=== PATIENT | male | born 1980 | race Caucasian/White ===

== ENCOUNTER 2017-05-13 14:35 | Emergency (ER) | payer SELFPAY ==
[2017-05-13 14:46] VITALS: BP 158/99
--- NOTE | 2017-05-13 20:08 | UC ---
Miranda Jones Thomas, scribed for Izzy Coppola DO on 05/13/17 at 1454 . Skin Complaint HPI - HPI Summary HPI Summary: The pt is a 37 y/o M presenting [place] [facility] [place]/o throat swelling that began 3 days ago. This swelling is not painful. He denies any dysphagia, wheezing, or any interference with his breathing. Pt additionally c/o unintentional recent weight loss (16 pounds in the last 30 days), chronic SOB (over last 2 months), sore throat (onset yesterday, and just barely), cough, intermittent nausea ( over the last month), and urticaria (when he exercises and none at [facility] He describes his SOB as I feel like I am out of breath like I am running but I havent been running, which then vanishes after a couple hours. He denies SOB at [facility]. The last time that he felt SOB was 1 week ago. Pt denies fevers, night sweats, dysphagia, dyspnea on exertion, vomiting, abd pain, diarrhea, CP, myalgia, rash, GARNER, arthralgia, hematuria, and dysuria. He denies recent changes in his diet. He describes his diet as unhealthy with much processed food. PMHx: Obesity. PSHx: none. SHx: no smoking, rare alcohol use, no illicit drugs. FHx: HTN, DM. He does not have a PCP. - History of Current Complaint Chief Complaint: [facility] Time Seen by Provider: 05/13/17 14:45 Stated Complaint: LUMP ON THROAT Hx Obtained From: Patient Onset/Duration: Lasting Days - 3, Still Present Timing: Constant Onset Severity: Moderate Current Severity: Moderate Pain Intensity: 0 Pain Scale Used: 0-10 Numeric Location: Discrete, Other - rt of trachea Character: Swelling Aggravating: Nothing Alleviating: Nothing Associated Signs & Symptoms: Positive: Nausea - intermittent and over the last month, Difficulty Breathing - chronic, none at [facility]. Negative: Vomiting, Fever, Chills, Cough, Wheezing, Chest Pain, Hoarseness, Throat Tightening, Rash, Abdominal Pain, Lightheadedness, Tenderness Related History: Other: - Recent weight loss (16 pounds in last 30 days, unintentional) - Allergy/Home Medications Allergies/Adverse Reactions: Allergies Allergy/AdvReac Type Severity Reaction Status Date / Time Penicillins [PCN] Allergy Rash Verified 07/29/14 07:13 fabric softener Allergy Unknown Uncoded 07/29/14 07:13 Reaction Details Review of Systems Constitutional: Other - POS: recent unintentional weight loss Skin: Other - POS: urticaria (none at [facility] and only when he exercises) Eyes: Negative ENT: Sore Throat - onset yesterday, minor Respiratory: Shortness Of Breath - chronic, although no dypsnea on exertion and none at [facility] Cardiovascular: Negative Gastrointestinal: Nausea - intermittent, over the last month Genitourinary: Negative Motor: Negative Neurovascular: Negative Musculoskeletal: Negative Neurological: Negative Psychological: Negative All Other Systems Reviewed And Are Negative: Yes PMH/Surg Hx/FS Hx/Imm Hx Previously Healthy: No - Obesity Respiratory History: Other Other Respiratory History: NEG: COPD - Surgical History Surgical History: None - Family History Known Family History: Positive: Hypertension, Diabetes - Social History Alcohol Use: Rare Substance Use Type: None Smoking Status (MU): Never Smoked Tobacco Physical Exam Triage Information Reviewed: Yes Appearance: Well-Appearing, No Pain Distress, Obese Vital Signs: Initial Vital Signs Temp 98.2 F 05/13/17 14:42 Pulse 69 05/13/17 14:42 Resp 18 05/13/17 14:42 BP 158/99 05/13/17 14:42 Pulse Ox 97 05/13/17 14:42 Vital Signs Reviewed: Yes Eyes: Positive: Conjunctiva Clear. Negative: Discharge ENT: Positive: Hearing grossly normal, Other: - Pt appears to have a smooth rubbery thyroid nodule on the left as well as lymphadenopathy in the cervical chain. No nodes in the superclavicular or axial area bilaterally.. Negative: Muffled/hoarse voice Neck: Positive: Supple Respiratory: Positive: Lungs clear, Normal breath sounds, No respiratory distress, No accessory muscle use Cardiovascular: Positive: RRR, No Murmur Abdomen Description: Positive: Nontender, Soft. Negative: Distended, Guarding Bowel Sounds: Positive: Present Musculoskeletal Exam: Normal Neurological: Positive: Alert, Muscle Tone Normal Psychological Exam: Normal Psychological: Positive: Age Appropriate Behavior Skin Exam: Normal Skin: Positive: Other - Warm, dry, normal color Course/Dx - Course Course Of Treatment: ASSESSMENT AND PLAN: The pt is a 37 y/o M presenting [place] [facility] [place]/o throat swelling that began 3 days ago. This swelling is not painful. He denies any dysphagia, wheezing, or any interference with his breathing. Pt additionally c/o unintentional recent weight loss (16 pounds in the last 30 days ), chronic SOB (over last 2 months), sore throat (onset yesterday, and just barely), cough, intermittent nausea (over the last month), and urticaria (when he exercises and none at [facility] He describes his SOB as I feel like I am out of breath like I am running but I havent been running, which then vanishes after a couple hours. He denies SOB at [facility]. The last time that he felt SOB was 1 week ago. Pt denies fevers, night sweats, dysphagia, dyspnea on exertion, vomiting, abd pain, diarrhea, CP, myalgia, rash, GARNER, arthralgia, hematuria, and dysuria. He denies recent changes in his diet. He describes his diet as unhealthy with much processed food. PMHx: Obesity. PSHx: none. SHx: no smoking, rare alcohol use, no illicit drugs. FHx: HTN, DM. He does not have a PCP. Blood pressure noted. Bloodwork was obtained, and the results will be communicated to him at a later date. This includes a CBC, CRP, ESR, and TSH. Patient is diagnosed with thyroid nodule, lymphadenopathy, and elevated BP without a diagnosis of HTN. Patient will be discharged home with follow up by PCP. He was given the number of the [facility] physician referral service and was told to tell the surgical instrument repair specialist that he needs an appointment in 2-5 days. He was strongly urged to make an appointment with a PCP. He was also encouraged to make healthy changes to his diet. He also was given a script for a BP cuff, which he was instructed to use a couple times before his appointment with his PCP. He was given patient education materials on lymphadenopathy and thyroid nodules. Patient is agreeable to this plan. - Differential Diagnoses - Skin Complaint Differential Diagnoses: Other - thyroid nodule, hyperthyroidism, neoplastic process, lad - Diagnoses Provider Diagnoses: Thyroid nodule, lymphadenopathy, elevated blood pressure without a diagnosis of HTN. Discharge - Discharge Plan Condition: Stable Disposition: HOME Patient Education Materials: Lymphadenopathy (ED), Thyroid Nodules (ED) Referrals: [facility]YSICIAN REFERRAL [Outside] - 3 Days (Please tell the surgical instrument repair specialist that we would like to have you seen in 2-5 days.) Additional Instructions: YOUR BLOOD PRESSURE WAS ELEVATED AT THIS VISIT. PLEASE FOLLOW UP WTH YOUR PCP FOR FURTHER EVALUATION. WE ARE GIVING YOU A SCRIPT FOR A BLOOD PRESSURE CUFF. PLEASE RE-CHECK YOU BP AT LEAST 2 TIMES BETWEEN NOW AND THEN. BE SURE TO RELAX FOR 5 MINUTES PRIOR TO CHECKING. RECORD THE RESULTS AND BRING THEM WITH YOU TO YOUR PCP'S OFFICE ALONG WITH YOUR HOME CUFF FOR CALIBRATION WITH YOUR PCP'S OFFICE CUFF. IF YOU DEVELOP ANY NEW SYMPTOMS SUCH DIZZINESS, SHORTNESS OF BREATH, HEAD ACHE, VISUAL CHANGES, CHEST PAIN, NAUSEA OR VOMITING, BLOOD IN YOUR URINE, LIGHTHEADEDNESS, OR ANY OTHER CONCERNING NEW SYMPTOM, GO TO THE ED IMMEDIATELY. The documentation as recorded by the Miranda solano Thomas accurately reflects the service I personally performed and the decisions made by me, Izzy Coppola DO.
[2017-05-14 14:27] LABS: Hematocrit 50 % (42-52); Hemoglobin 16.6 g/dl (14.0-18.0); Mean Corpuscular HGB Conc 33 g/dl (31-36); Mean Corpuscular Hemoglobin 26 pg (27-31); Mean Corpuscular Volume 79 fL (80-94); Mean Platelet Volume 9 um3 (7.4-10.4); Red Blood Count 6.36 10^6/ul (4.0-5.4); Red Cell Distribution Width 14 % (10.5-15); White Blood Count 5.8 10^3/ul (3.5-10.8)
[2017-05-14 14:30] LABS: Add Diff/Slide Review? Manual Diff Added; Comments Flag Yes
[2017-05-14 14:44] LABS: TSH (Thyroid Stimulating Horm) 3.27 mcIU/mL (0.34-5.60)
[2017-05-14 14:54] LABS: Eosinophils % 3 % (0-6); Immature Granulocytes 1 % (0-9); Neutrophil % 59 % (38-83); Reactive Lymph % 1 % (0-6)
[2017-05-14 14:55] LABS: RBC Morphology Normal (Normal)
[2017-05-14 15:14] LABS: Erythrocyte Sed Rate 9 mm/Hr (0-14)
--- NOTE | 2017-05-14 18:14 | UC ---
Progress - Progress Note Progress Note: Pt seen for lymphadenopathy and thyroid nodules; CBCw/diff and TSH reviewed. No urgent changes; pt directed to f/u with PCP at visit. Pathology comment still pending.
== END 2017-05-13 15:50 | disposition home or self-care (01) ==
LOC: UCEAST 14:35
DX: E04.1 Nontoxic single thyroid nodule (principal); E66.9 Obesity, unspecified; Z88.0 Allergy status to penicillin; R59.1 Generalized enlarged lymph nodes; R03.0 Elevated blood-pressure reading, without diagnosis of hypertension
CPT/HCPCS: 36415; 84443; 85025; 85060; 85652; 86141; 99212; G0463

== ENCOUNTER 2019-09-30 19:54 | Emergency (ER) | payer SELFPAY ==
[2019-09-30 20:02] VITALS: BP 158/99
--- NOTE | 2019-09-30 20:05 | UC ---
Skin Complaint HPI - HPI Summary HPI Summary: Patient presents to urgent care for highs. Patient states her on 6:00 he first noticed it. Patient states he was wearing clothes that his mother washed out machine. Patient states he is concerned that there was on the machine and he's had this similar kind of reaction before. Patient states it's very itchy. Patient denies trouble breathing. No shortness of breath. No wheeze. No nausea or vomiting or lightheaded. Patient did not take anything for his itching as he was at work. Patient states he's had similar reactions to Offer in the past. Patient without any other complaints per patient's medications as entered in the EMR by triage nurse reviewed this visit - History of Current Complaint Chief Complaint: UCSkin Time Seen by Provider: 09/30/19 20:03 Stated Complaint: RASH Hx Obtained From: Patient Pain Intensity: 0 - Allergy/Home Medications Allergies/Adverse Reactions: Allergies Allergy/AdvReac Type Severity Reaction Status Date / Time Penicillins Allergy Rash Verified 09/30/19 20:06 fabric softener Allergy Unknown Uncoded 09/30/19 20:02 Reaction Details PMH/Surg Hx/FS Hx/Imm Hx Previously Healthy: Yes - Surgical History Surgical History: None - Family History Known Family History: Positive: Hypertension, Diabetes, Non-Contributory - Social History Occupation: Employed Full-time Lives: With Family Alcohol Use: Rare Substance Use Type: None Smoking Status (MU): Never Smoked Tobacco Review of Systems All Other Systems Reviewed And Are Negative: Yes Constitutional: Positive: Negative Skin: Positive: Rash Eyes: Positive: Negative ENT: Positive: Negative Respiratory: Positive: Negative Is Patient Immunocompromised?: No Physical Exam - Summary Physical Exam Summary: Vital Signs Reviewed: Yes A+Ox3, no distress Eyes: Conjunctiva Clear, TREY. EOM intact and full ENT: Hearing grossly normal TM x 2 clear, mmoist, uvula midline, no exudate, no erythema, no intra oral edema, intra-oral hives Neck: Positive: Supple Respiratory: Positive: No respiratory distress, No accessory muscle use + CTA throughout no w/r Cardiovascular: RRR nl s1, s2 no m/r CBT <2 sec abd soft + BS nt/nd no guarding, no distension Musculoskeletal Exam: JOHNSON x 4 without difficulty Strength Intact, ROM Intact Neurological: Positive: Alert, + sensation throughout Psychological: Positive: Normal Response To technical aid Skin: Positive: + scattered hives chest, abd, back urticaria Triage Information Reviewed: Yes Vital Signs: Initial Vital Signs Temp 98.5 F 09/30/19 19:57 Pulse 102 09/30/19 19:57 Resp 18 09/30/19 19:57 BP 158/99 09/30/19 19:57 Pulse Ox 100 09/30/19 19:57 Course/Dx - Course Course Of Treatment: Patient presents to urgent care for full body hives - pt states likely related to fabric softner from mom no intra-oral edema VSS Pt with full urticaria body urticaria, no other systemic symptoms Will start pred, pepcid, bendaryl - precautions discussed avoid heat, NSAIDS return precautions discussed pt comfortable and in agreement with plan elevated BP - recommend f/u with pcp - Diagnoses Provider Diagnosis: Urticaria Discharge ED - Sign-Out/Discharge Documenting (check all that apply): Patient Departure All imaging exams completed and their final reports reviewed: No Studies - Discharge Plan Condition: Stable Disposition: HOME Prescriptions: Famotidine TAB* [Pepcid 20 MG TAB*] 20 mg PO DAILY #12 tab predniSONE 20 mg TAB [Deltasone 20 MG TAB*] 20 mg PO DAILY #17 tab Patient Education Materials: Urticaria (ED) Forms: *Work Release Referrals: [facility] PHYSICIAN REFERRAL [Outside] No Primary Care Phys,NOPCP [Primary Care Provider] - Additional Instructions: - Take prednisone exactly as prescribed until gone - starting tomorrow - Okay to take Benadryl (1-2 tablets) every 6 hours as needed. This medication may cause drowsiness - do NOT drive, operate machinery or drink alcohol while taking Benadryl -Take pepcid as prescribed - 2 times daily until gone -Avoid getting over heated (hot showers, hot tubs, exercise) for at least 48 hours - Try to avoid aspirin, NSAIDs (Motrin, Aleve, Naprosyn) for 2-3 days - Okay to apply cool compresses to the area of injury - rewash any clothing that may have been contaminated by the fabric softener. -Contact your doctor or return here with questions or concerns. If you develop facial swelling, tongue swelling, shortness of breath or any other concerns - call 911 immediately for evaluation and treatment - Billing Disposition and Condition Condition: STABLE Disposition: Home
[2019-09-30] MEDS ORDERED: Famotidine TAB* 20 MG PO ONE (20:13)
== END 2019-09-30 20:24 | disposition home or self-care (01) ==
LOC: UCEAST 19:54
DX: R03.0 Elevated blood-pressure reading, without diagnosis of hypertension (principal); L50.9 Urticaria, unspecified; Z88.0 Allergy status to penicillin; Z91.048 Other nonmedicinal substance allergy status
CPT/HCPCS: 99212; A9270-GY; G0463; J7512

== ENCOUNTER 2019-10-07 17:28 | Emergency (ER) | payer OTHER ==
[2019-10-07 17:59] VITALS: BP 154/101
--- NOTE | 2019-10-07 18:11 | UC ---
Allergic Reaction HPI - History of Current Complaint Chief Complaint: UCGeneralIllness Stated Complaint: BLURRY VISION, FLOATING SENSATION Time Seen by Provider: 10/07/19 18:08 Pain Intensity: 0 - Allergies/Home Medications Allergies/Adverse Reactions: Allergies Allergy/AdvReac Type Severity Reaction Status Date / Time Penicillins Allergy Rash Verified 10/07/19 17:54 fabric softener Allergy Unknown Uncoded 10/07/19 17:54 Reaction Details PMH/Surg Hx/FS Hx/Imm Hx - Surgical History Surgical History: None - Family History Known Family History: Positive: Hypertension, Diabetes, Non-Contributory - Social History Alcohol Use: Rare Substance Use Type: None Smoking Status (MU): Never Smoked Tobacco Physical Exam - Summary Physical Exam Summary: Vital Signs Reviewed: Yes General: well developed, well nourished obese sitting in the examining table w/ o any apparent respiratory distress. Eyes: Positive: Conjunctiva Clear - PERRLA, EOMI, fundi grossly normal ENT: Positive: Normal ENT inspection, Hearing grossly normal, Pharynx normal, TMs normal - B/L external ear canal clear, B/L TM's WNL, Other: - no maxillary or frontal sinus tenderness on percussion. Negative [place]-hallpike maneuver. Negative: Tonsillar swelling, Tonsillar exudate Dental Exam: Normal Neck: Positive: Supple, Nontender, No Lymphadenopathy Respiratory: Positive: Chest non-tender, Lungs clear, Normal breath sounds Cardiovascular: Positive: RRR, No Murmur, Pulses Normal, Brisk Capillary Refill Abdomen Description: Positive: Nontender, No Organomegaly, Soft. Negative: CVA Tenderness (R), CVA Tenderness (L) Bowel Sounds: Positive: Present Musculoskeletal Exam: Normal Musculoskeletal: Positive: Strength Intact, ROM Intact, No Edema Neurological Exam: Normal Neurological: Positive: Alert, Muscle Tone Normal, Other: - -Neuro: A&O x4, GCS 15, CN II-XII intact, no focal neuro deficits, normal [id number] or heel-to- ocasio testing. Romberg neg, no pronator drift, normal rapid alternating movements. Gait is normal, Psychological Exam: Normal Skin Exam: Normal Vital Signs: Initial Vital Signs Temp 99.3 F 10/07/19 17:55 Pulse 94 10/07/19 17:55 Resp 16 10/07/19 17:55 BP 154/101 10/07/19 17:55 Pulse Ox 97 10/07/19 17:55 Discharge ED - Discharge Plan Referrals: No Primary Care Phys,NOPCP [Primary Care Provider] -
--- NOTE | 2019-10-07 18:35 | UC ---
General HPI - HPI Summary HPI Summary: 39 y/o male presents to the urgent care c/o Dry mouth, body w/ a floating feeling, mild confusion at times, pressure in ears, jittery, blurred vision and frequency on urination for the past 6 days. Pt reports, he was seen here at the clinic on 09/30/2019 w/ a rash, possible allergic reaction and Rx Predisone PO. The next day, he noticed his mouth was very dry, and then w/ frequency on urination. Rash started to resolved. But yesterday symptoms worsen at work w/ blurred vision, mild confusion. Pt w/ FMHX of DM type II, but no Hx of DM. However, he has not seen his PCP for the past 2-3 years. Pt is not sure what had may cause the rash at the beginning of symptoms. But he thinks his symptoms are related to the Prednisone PO. Pt denies fever, pain, GARNER, diplopia, photophobia, SOB, difficulty breathing, chest pain, abdominal pain, N/V/D, Hx of STD's or burning on urination or flank pain. - History of Current Complaint Chief Complaint: UCGeneralIllness Stated Complaint: BLURRY VISION, FLOATING SENSATION Time Seen by Provider: 10/07/19 18:08 Hx Obtained From: Patient Onset/Duration: Gradual Onset, Lasting Days - 5 days ago, Still Present, Worse Since - todayt w/ frequency on urination, blurred vision, dry mouth, confusion Timing: Constant Onset Severity: Mild Current Severity: Moderate Pain Intensity: 0 Associated Signs & Symptoms: Positive: Dizziness. Negative: Fever, Headache, Melena, Vomiting, Wheezing, Weakness - Allergy/Home Medications Allergies/Adverse Reactions: Allergies Allergy/AdvReac Type Severity Reaction Status Date / Time Penicillins Allergy Rash Verified 10/07/19 19:19 fabric softener Allergy Unknown Uncoded 10/07/19 19:19 Reaction Details PMH/Surg Hx/FS Hx/Imm Hx Previously Healthy: Yes - Pt denies PMHX - Surgical History Surgical History: None - Family History Known Family History: Positive: Cardiac Disease, Hypertension, Diabetes, Non- Contributory - Social History Occupation: Employed Full-time Lives: With Family Alcohol Use: Rare Substance Use Type: None Smoking Status (MU): Never Smoked Tobacco Review of Systems All Other Systems Reviewed And Are Negative: Yes Constitutional: Positive: Other - body w/ a flooting feeling and midl confusion at times Skin: Positive: Rash - mild rash in all body which is resolving Eyes: Positive: Blurred Vision. Negative: Diplopia, Drainage, Photophobia ENT: Positive: Negative Respiratory: Positive: Negative Cardiovascular: Positive: Negative Gastrointestinal: Positive: Negative Genitourinary: Positive: Frequency. Negative: Dysuria, Urgency, Vaginal/Penile Burning, Vaginal/Penile Itching Motor: Positive: Negative Neurovascular: Positive: Negative Musculoskeletal: Positive: Negative Neurological: Positive: Other - midl confusion. Negative: Headache, Weakness, Paresthesia, Numbness Psychological: Positive: Negative Is Patient Immunocompromised?: No Physical Exam - Summary Physical Exam Summary: Vital Signs Reviewed: Yes General: well developed, well nourished obese male sitting in the examining table w/o any apparent respiratory distress. Eyes: Positive: Conjunctiva Clear - PERRLA, EOMI, fundi grossly normal ENT: Positive: Normal ENT inspection, Hearing grossly normal, Pharynx normal, TMs normal - B/L external ear canal clear, B/L TM's WNL, Other: - no maxillary or frontal sinus tenderness on percussion. Negative [place]-hallpike maneuver. Negative: Tonsillar swelling, Tonsillar exudate Dental Exam: Normal Neck: Positive: Supple, Nontender, No Lymphadenopathy Respiratory: Positive: Chest non-tender, Lungs clear, Normal breath sounds Cardiovascular: Positive: RRR, No Murmur, Pulses Normal, Brisk Capillary Refill Abdomen Description: Positive: Nontender, No Organomegaly, Soft. Negative: CVA Tenderness (R), CVA Tenderness (L) Bowel Sounds: Positive: Present Musculoskeletal Exam: Normal Musculoskeletal: Positive: Strength Intact, ROM Intact, No Edema Neurological Exam: Normal Neurological: Positive: Alert, Muscle Tone Normal, Other: - -Neuro: A&O x4, GCS 15, CN II-XII intact, no focal neuro deficits, normal [id number] or heel-to- ocasio testing. Romberg neg, no pronator drift, normal rapid alternating movements. Gait is normal, Psychological Exam: Normal Skin Exam: Normal Triage Information Reviewed: Yes Vital Signs: Initial Vital Signs Temp 99.3 F 10/07/19 17:55 Pulse 94 10/07/19 17:55 Resp 16 10/07/19 17:55 BP 154/101 10/07/19 17:55 Pulse Ox 97 10/07/19 17:55 Course/Dx - Course Course Of Treatment: 39 y/o male presents to the urgent care c/o Dry mouth, body w/ a floating feeling, mild confusion at times, pressure in ears, jittery, blurred vision and frequency on urination for the past 6 days. Pt reports, he was seen here at the clinic on 09/30/2019 w/ a rash, possible allergic reaction and Rx Predisone PO. The next day, he noticed his mouth was very dry, and then w/ frequency on urination. Rash started to resolved. But yesterday symptoms worsen at work w/ blurred vision, mild confusion. Pt w/ FMHX of DM type II, but no Hx of DM. However, he has not seen his PCP for the past 2-3 years. Pt is not sure what had may cause the rash at the beginning of symptoms. But he thinks his symptoms are related to the Prednisone PO. Pt denies fever, pain, GARNER, diplopia, photophobia, SOB, difficulty breathing, chest pain, abdominal pain, N/V/D, Hx of STD's or burning on urination or flank pain. Pt is hemodynamically stable, A&OX3, Vitals: WNL except for BP 154/101 w/ no focal neurological derficit. FSG: >444mg/dl, UA: 2+glucose, 1+ketone. Pt states No Hx of DM. Pt w/ possible hyperglycemic hyperosmolar state. Pt's symptoms discussed w/ Dr Valle since It think Pt needs to go to a higher level of care for a full work-up. DR Valle agreed and recommends ambulance transfer. Pt's findings discussed w/ patient and strongly advised to go to [facility] by ambulance. Pt declined ambulance transfer and stated he will drive to the [place] ER immediately. Pt explained the risks of not going by ambulance and he still declines and sings AMA form and states he will go by private car. I spoke w/ DR Ballard at [facility] and discussed Pt's symptoms w/ him and he accepted patient who will go by private car.Pt's BP is elevated today advised to decrease salt in diet, monitor BP and f/u with PCP for further management. Pt left clinic hemodynamically stable, A&OX3 and ambulating - Differential Dx - Multi-Symptom Differential Diagnoses: Cardiac Ischemia, Metabolic Abnormality, Urinary Tract Infection, Other - hyperglycimic hyperosmolar state, - Diagnoses Provider Diagnosis: Hyperglycemia, unspecified, Elevated BP without diagnosis of hypertension Discharge ED - Sign-Out/Discharge Documenting (check all that apply): Patient Departure All imaging exams completed and their final reports reviewed: No - Discharge Plan Condition: Stable Disposition: AGAINST MEDICAL ADVICE Patient Education Materials: Hyperosmolar Hyperglycemic State (ED) Referrals: [facility] [Outside] Additional Instructions: I think you need a higher level or care for your presenting symptoms. I highly recommend you to go to the ER for further evaluation and treatment. The risks of not going can be , sepsis, heart attack, etc. I spoke to the ER attending Dr. Ballard. They are expecting you. - Billing Disposition and Condition Condition: STABLE Disposition: Against Medical Advice - Attestation Statements Provider Attestation: This patient was not seen by me. I was available for consult. Chart reviewed. JUN
== END 2019-10-07 18:50 | disposition left against medical advice (07) ==
LOC: UCEAST 17:28
DX: R73.9 Hyperglycemia, unspecified (principal); R03.0 Elevated blood-pressure reading, without diagnosis of hypertension; R35.0 Frequency of micturition; H53.8 Other visual disturbances; R41.0 Disorientation, unspecified
CPT/HCPCS: 81003; 99212; G0463

== ENCOUNTER 2019-10-07 19:09 | Observation (INO) | payer OTHER ==
[2019-10-07] MEDS ORDERED: NS 0.9% 1000 ML** 1,000 ML IV ONE ×2 (19:31→20:22)
--- NOTE | 2019-10-07 19:38 | ED ---
HPI Diabetic - HPI Summary HPI Summary: 39 year old male presents to the ED with a chief complaint of diabetes-like symptoms since starting a Prednisone treatment a week ago. Patient started taking prednasone due to an allergic reaction last week. Since then, he has been always thirsty, frequently urinating, feeling weak, has had nausea, feels tired, has a bad taste in his mouth, and feels "like he's floating". Patient denies weight loss. No past diagnoses of DM. FHx of DM. Patient rarely drinks alcohol. He does not do recreational drugs or smoke tobacco. - History Of Current Complaint Chief Complaint: EDDiabeticProb Hx Obtained From: Patient Onset/Duration: Sudden Onset, Lasting Days, Still Present Timing: Constant Character: Other - weak and fatigued Aggravating: Medication Change - started prednisone 1 wk ago Associated Signs & Symptoms: Decreased Level of Conciousness - fatigued, feels like hes floating, feels weak, "Fruity Breath", Nausea, Polydipsia, Polyuria - Allergies/Home Medications Allergies/Adverse Reactions: Allergies Allergy/AdvReac Type Severity Reaction Status Date / Time Penicillins Allergy Rash Verified 10/07/19 19:19 fabric softener Allergy Unknown Uncoded 10/07/19 19:19 Reaction Details PMH/Surg Hx/FS Hx/Imm Hx Endocrine/Hematology History: Denies: Hx Diabetes Cardiovascular History: Reports: Hx Hypertension - pt states he is told his bp is high but takes not meds Respiratory History: Denies: Hx Asthma Infectious Disease History: No Infectious Disease History: Denies: Hx Clostridium Difficile, Hx Hepatitis, Hx Human Immunodeficiency Virus (HIV), Hx of Known/Suspected MRSA, Hx Shingles, Hx Tuberculosis, Hx Known/ Suspected VRE, Hx Known/Suspected VRSA, History Other Infectious Disease, Traveled Outside the [place] in Last 30 Days - Family History Known Family History: Positive: Hypertension, Diabetes, Non-Contributory - Social History Alcohol Use: Rare Substance Use Type: Reports: None Smoking Status (MU): Never Smoked Tobacco Review of Systems Constitutional: Negative - no weight loss, Other - feels like he is floating Positive: Fatigue, Other - always thirsty Positive: Other - Bad taste in his mouth Positive: frequency Positive: Weakness All Other Systems Reviewed And Are Negative: Yes Physical Exam - Summary Physical Exam Summary: VITAL SIGNS: Reviewed. GENERAL: Patient is a well-developed and nourished male who is lying comfortable in the stretcher. Patient is not in any acute respiratory distress. HEAD AND FACE: No signs of trauma. No ecchymosis, hematomas or skull depressions. No sinus tenderness. EYES: PERRLA, EOMI x 2, No injected conjunctiva, no nystagmus. EARS: Hearing grossly intact. Ear canals and tympanic membranes are within normal limits. MOUTH: Oropharynx within normal limits. NECK: Supple, trachea is midline, no adenopathy, no JVD, no carotid bruit, no c- spine tenderness, neck with full ROM. CHEST: Symmetric, no tenderness at palpation. LUNGS: Clear to auscultation bilaterally. No wheezing or crackles. CVS: Regular rate and rhythm, S1 and S2 present, no murmurs or gallops appreciated. ABDOMEN: Soft, non-tender. No signs of distention. No rebound, no guarding, and no masses palpated. Bowel sounds are normal. EXTREMITIES: FROM in all major joints, no edema, no cyanosis or clubbing. NEURO: Alert and oriented x 3. No acute neurological deficits. Speech is normal and follows commands. SKIN: Dry and warm. Triage Information Reviewed: Yes Vital Signs On Initial Exam: Initial Vitals Temp Pulse Resp BP Pulse Ox 99.2 F 102 15 156/104 96 10/07/19 19:15 10/07/19 19:15 10/07/19 19:15 10/07/19 19:15 10/07/19 19:15 Vital Signs Reviewed: Yes Diagnostics - Vital Signs Vital Signs Temp Pulse Resp BP Pulse Ox 10/07/19 19:15 99.2 F 102 15 156/104 96 - Laboratory Result Diagrams: 10/07/19 19:45 10/07/19 19:45 Lab Statement: Any lab studies that have been ordered have been reviewed, and results considered in the medical decision making process. Diabetic Course/Dx - Course Assessment/Plan: 39 year old male presents to the ED with a chief complaint of diabetes-like symptoms since starting a Prednisone treatment a week ago. Patient started taking prednisone due to an allergic reaction last week. Since then, he has been always thirsty, frequently urinating, feeling weak, has had nausea, feels tired, has a bad taste in his mouth, and feels "like he's floating ". Patient denies weight loss. No past diagnoses of DM. FHx of DM. Patient rarely drinks alcohol. He does not do recreational drugs or smoke tobacco. Blood work without a significant abnormality except for sodium 125, chloride 91 , carbon dioxide is 20, calculated anion gap is 16, creatinine 1.23, glucose 637. In the ED course the patient was given 2 L of IV fluids. I placed the patient in insulin drip. I discuss my physical exam and findings with Dr. Martines from the hospital services and she agrees to admit patient. However, she recommends to stop the insulin drip and just to give insulin pushes at this time. She will reassess. There is no need for insulin drip. Patient is hemodynamically stable alert oriented 3. - Diagnoses Differential Dx: Diabetic Ketoacidosis, Hyperglycemia, Hyperosmolar State Provider Diagnoses: Hyperosmolar non-ketotic state in patient with type 2 diabetes mellitus - Physician Notifications Discussed Care Of Patient With: Meng Martines - Hospitalist Time Discussed With Above Provider: 20:37 Instructed by Provider To: Admit As Observation - I spoke to Dr. Martines, who accepts the patient for admission as observation. However, she recommends to not do an insulin drip at this time. She would do an insulin push instead. Admit/Transition Orders Completed By ED Provider: Yes Discharge ED - Sign-Out/Discharge Documenting (check all that apply): Patient Departure - admit - Discharge Plan Condition: Stable Disposition: ADMITTED TO [facility] Referrals: No Primary Care Phys,NOPCP [Primary Care Provider] - - Billing Disposition and Condition Condition: STABLE Disposition: Admitted to [facility] - Attestation Statements Document Initiated by Scribe: Yes Documenting Scribe: Rip Coreas Provider For Whom Analy is Documenting (Include Credential): Boris Ballard MD Scribe Attestation: I, Rip Coreas, scribed for Boris Ballard MD on 10/07/19 at 2130. Scribe Documentation Reviewed: Yes Provider Attestation: The documentation as recorded by the scribe, Rip Coreas accurately reflects the service I personally performed and the decisions made by me, Boris Ballard MD Status of Scribe Document: Viewed
[2019-10-07 19:58] LABS: ABS Lymphocytes 0.7 10^3/ul (1.0-4.8); ABS Monocytes 0.3 10^3/ul (0-0.8); ABS Neutrophils 8.8 10^3/ul (1.5-7.7); Eosinophil % 0.4 %; Hematocrit 51 % (42-52); Hemoglobin 17.3 g/dL (14.0-18.0); Lymphocyte % 7.5 %; Mean Corpuscular HGB Conc 34 g/dL (31-36); Mean Corpuscular Hemoglobin 28 pg (27-31); Mean Corpuscular Volume 81 fL (80-94); Mean Platelet Volume 9.6 fL (7.4-10.4); Platelet Count 251 10^3/uL (150-450); Red Cell Distribution Width 14 % (10-15); White Blood Count 9.8 10^3/uL (3.5-10.8)
[2019-10-07 20:13] LABS: Albumin 4.5 g/dL (3.2-5.2); Albumin/Globulin Ratio 1.4 (1-3); BUN/Creatinine Ratio 14.6 (8-20); Calcium 9.9 mg/dL (8.6-10.3); EGFR African American 79.7 (>60); EGFR Non-African American 65.9 (>60); Globulin 3.2 g/dL (2-4); Total Bilirubin 0.8 mg/dL (0.2-1.0); Total Protein 7.7 g/dL (6.4-8.9)
[2019-10-07] MEDS ORDERED: Insulin REGULAR(*) 1 UNITS UNIT IV PUSH ONE (20:28)
[2019-10-07 20:43] LABS: TSH (Thyroid Stimulating Horm) 2.63 mcIU/mL (0.34-5.60)
[2019-10-07] MEDS ORDERED: Insulin Infusion 100unit/100mL 100 UNITS/100 ML UNIT IV SCH (21:00)
[2019-10-07 21:02] LABS: Urine Appearance Clear; Urine Bilirubin Negative (Negative); Urine Blood Negative (Negative); Urine Color Yellow; Urine Glucose 3+(>=500 mg/dL) (Negative); Urine Ketones 1+ (Negative); Urine Nitrite Negative (Negative); Urine Protein Negative (Negative); Urine Specific Gravity 1.032 (1.010-1.030); Urine Urobilinogen Negative (Negative)
[2019-10-07 21:26] LABS: Potassium 4.7 mmol/L (3.5-5.0)
[2019-10-07] MEDS ORDERED: Dextrose 50% Syringe 50 ML* 25 GM/50 ML SYRINGE IV PUSH PRN ×2 (22:17→22:19)
[2019-10-07] MEDS ORDERED: Insulin LISPRO* 1 UNITS UNIT SUBCUT ONE (22:17)
[2019-10-07] MEDS ORDERED: diPHENhydraMINE PO* 25 MG PO PRN (22:20)
[2019-10-07] MEDS ORDERED: NS 0.9% 1000 ML** 1,000 ML IV SCH (22:30)
[2019-10-07] MEDS: Famotidine TAB* 20 MG PO SCH (23:58)
[2019-10-08 00:18] LABS: BUN/Creatinine Ratio 15.8 (8-20); Calcium 8.8 mg/dL (8.6-10.3); EGFR African American 107.4 (>60); EGFR Non-African American 88.7 (>60); Potassium 4.1 mmol/L (3.5-5.0)
--- NOTE | 2019-10-08 00:49 | HP ---
HISTORY AND PHYSICAL: DATE OF ADMISSION: 10/07/19 PRIMARY CARE PROVIDER: None. CHIEF COMPLAINT: Polyuria, polydipsia, recent prednisone treatment. HISTORY OF PRESENT ILLNESS: The patient is a 39-year-old male with no significant past medical history, who was recently started on prednisone due to an allergic reaction that occurred last week. The patient reports that last Monday, he developed a rash at the upper body, hives associated with itching, he was unsure what it was due to, was seen at the urgent clinic and was started on prednisone and Pepcid. Two days later, he had another episode like mild hives developing. At this point, the patient is unsure as to what is causing the allergic symptoms, he thinks that perhaps that could be the things he is exposed to at work; however, it could be a new detergent. The patient is unsure. Currently, he does not have any allergic symptoms, no rashes, no lesions, no itching throat, no sore throat, no trouble breathing. Since they started him on prednisone, he has been having some dry mouth and increased thirst. He has been drinking soda with sugar. Has increased his fluid intakes due to thirst for the past one week. He also been having increasing weakness, feeling dehydrated and having frequent urination. He has also been having nausea. In the emergency room, the patient was seen and evaluated, was given IV fluids and 10 units of regular insulin. Subsequently, the hospitalist service was called due to hyperglycemia. MEDICATIONS: The patient's home medications include: 1. Prednisone taper. 2. Famotidine 20 mg daily. PAST MEDICAL HISTORY: None. PAST SURGICAL HISTORY: None. FAMILY HISTORY: Mother: Does not have any medical problems, but she does not go to the doctor on a regular basis. He does not know much history about his father as he has never met the father. Maternal grandmother had a heart problem. SOCIAL HISTORY: The patient lives at home with his mother, no use of alcohol. No smoking. He works with machines for airplane parts. REVIEW OF SYSTEMS: The patient does not have any fevers, no chills, however, has been having increased fatigue and dehydration. No changes in his vision or hearing, no sore throat, has been having dry mouth, no chest pain, no palpitations, no shortness of breath, no cough, no sputum production, no palpitations, no orthopnea, he has been having some abdominal discomfort earlier this morning, however, that has resolved. He is having nausea, however , no vomiting. He thinks that he is having constipation at times, but his last bowel movement was earlier this morning. No headaches, no changes in his mood. No thoughts of hurting himself or anyone else, no focal weakness or numbness that he can see. PHYSICAL EXAMINATION GENERAL: This is a young male, well developed, well nourished, lying in bed in no distress. VITAL SIGNS: Blood pressure is 156/104, saturation of 97% on room air, respiratory rate of 15, pulse of 102, temperature of 99.2. HEENT: Pupils are equal, round, and reactive to light. Atraumatic, normocephalic. Oral mucosa is dry. There is poor skin turgor. NECK: Supple with no JVD. LUNGS: There is no tachypnea, no use of accessory muscles. Lungs are clear without any wheezing, rales, or rhonchi. HEART: There is no chest wall tenderness, regular rate rhythm. No murmurs. ABDOMEN: Normoactive bowel sounds. Abdomen is soft, nontender, nondistended. EXTREMITIES: No lower extremity edema. Radial pulses 2+ bilaterally, no cyanosis, clubbing or edema. No lower extremity edema. NEUROLOGICAL: The patient is awake, alert, oriented x3, following all commands. Speech is clear and coherent. Tongue is midline. No facial droop. SKIN: Poor skin turgor. No rashes or lesions identified. DIAGNOSTIC STUDIES/LAB DATA: WBC of 9.8, hemoglobin of 17.3, hematocrit of 51 , platelets of 251, absolute neutrophil count of 8.8. Blood gas, VBG; pH of 7.41, pCO2 of 34. Chemistry shows sodium of 125, potassium of 4.7, chloride 91 , bicarb of 20, anion gap of 14, BUN 18, creatinine 1.23. GFR of non- 65.1. Glucose 677. After getting some insulin, POC glucose is 356. Total bilirubin of 0.8, AST 21, ALT 42, alkaline phosphatase 93, total protein 7.7, albumin 4.5, TSH of 2.63. Urine positive for 1+ ketone, protein negative, specific gravity 1.032, glucose 3+. IMPRESSION AND PLAN: 1. Hyperglycemia, positive for ketones, this is secondary to steroid-induced hyperglycemia: The patient does not have any past medical history of diabetes, hemoglobin A1c has been ordered, we will follow this up. With the glucose of 356, I will opt to get him another insulin subcu 1 dose of 5 units and I will also order insulin sliding scale. I started the patient on diabetic diet, continue IV fluids. Though, he does have elevated anion gap, at this point we will monitor the patient, I do not think he is having DKA as he does not have acidosis. 2. Allergy symptoms: Currently, he does not have any allergic symptoms, continue Pepcid, hold his home prednisone dose which he is being tapered off of. I ordered Benadryl as needed for allergy symptoms. 3. DVT prophylaxis: Low risk of DVT, SCDs and ambulate as tolerated. 4. We will start him on a consistent carb diet. The patient does not have any primary care doctor, will require [facility] referral. [id number]/[facility] #: [id number] [place]
[2019-10-08 05:59] LABS: BUN/Creatinine Ratio 18.9 (8-20); Calcium 8.3 mg/dL (8.6-10.3); EGFR African American 143.2 (>60); EGFR Non-African American 118.4 (>60); Potassium 3.8 mmol/L (3.5-5.0)
[2019-10-08] MEDS: Insulin LISPRO* 1 UNITS UNIT SUBCUT SCH ×4 (09:40→23:07)
[2019-10-08] MEDS: Famotidine TAB* 20 MG PO SCH (09:41)
--- NOTE | 2019-10-08 17:54 | CONSULT ---
Consult Consult: [facility] Inpatient Consult Note Date of Consult: 10/08/19 Reason for Consult: ketosis-prone diabetes Reason for Admission: steroid-induced hyperglycemia ASSESSMENT: 39 yo M with acute, steroid-induced hyperglycemia in setting of chronic, subclinical type 2 diabetes presenting with severe hyperglycemia and ketosis. It is likely that he has had subclinical diabetes for at least 6 months with A1c >13%, but recent steroid use and consumption of sugar-sweetened beverages has caused a severe hyperglycemic reaction. Hyperglycemia and ketosis have corrected rapidly with IVF, suggesting that he is likely to make a rapid recovery and will not need to use insulin after discharge. PLAN: - start glipizide XL 5mg QAM and metformin ER 750mg QHS - continue correction insulin for now - follow-up with endocrine or PCP in 2-3 weeks - call [phone] with questions SUBJECTIVE: History of Present Illness: 39 yo M admitted for symptomatic hyperglycemia. He has been in his usual state of good health until he developed upper body rash after exposure to a new cleaning product. He was prescribed prednisone taper for this approximately 1 week ago and noted rapid resolution of the skin symptoms. He continued to take prednisone as directed, however, and has experienced worsening polyuria/polydipsia. No personal or family history of diabetes. See admission note for further details. Past Medical History: none Medications Prior to Admission: none Inpatient Medications: Dextrose (D50w Syringe 50 Ml*) 12.5 gm IV PUSH .FOR FS < 60 - SS PRN PRN Reason: FS < 60 Diphenhydramine HCl (Benadryl Po*) 25 mg PO Q8HR PRN PRN Reason: Allergy Symptoms Last Admin: 10/07/19 23:58 Dose: 25 mg Famotidine (Pepcid Tab*) 20 mg PO DAILY [facility] Last Admin: 10/08/19 09:41 Dose: 20 mg Insulin Human Lispro (Humalog*) 0 units SUBCUT ACHS [facility]; Protocol Last Admin: 10/08/19 17:45 Dose: 6 units Allergies/Intolerances: PCN Social History: No tobacco or alcohol. Works with machine tools. Family History: Non-contributory. Review of Systems: 12 system review is otherwise negative. OBJECTIVE: Temp Pulse Resp BP Pulse Ox 98 F 86 18 150/84 98 10/08/19 15:15 10/08/19 15:15 10/08/19 15:15 10/08/19 15:15 10/08/19 15:15 General: alert, pleasant, oriented, no distress ENT: neck supple, no thyromegaly, no bruit is heard Chest: CTAB, no wheezing or crackles CV: RRR, no murmur Abdomen: soft, non-tender Extremities: no edema, distal pulses intact Skin: warm, dry, no rash Neuro: grossly intact motor/sensory in extremities Psych: restricted affect, pleasant Labs: Glucose Results 10/08/19 07:30 222 10/08/19 11:24 285 10/08/19 16:22 261 WBC 9.8 10^3/uL (3.5-10.8) 10/07/19 19:45 RBC 6.30 10^6 /uL (4.18-5.48) H 10/07/19 19:45 Hgb 17.3 g/dL (14.0-18.0) 10/07/19 19:45 Hct 51 % (42-52) 10/07/19 19:45 MCV 81 fL (80-94) 10/07/19 19:45 MCH 28 pg (27-31) 10/07/19 19:45 MCHC 34 g/dL (31-36) 10/07/19 19:45 RDW 14 % (10-15) 10/07/19 19:45 Plt Count 251 10^3/uL (150-450) 10/07/19 19:45 MPV 9.6 fL (7.4-10.4) 10/07/19 19:45 Neut % (Auto) 89.0 % 10/07/19 19:45 Lymph % (Auto) 7.5 % 10/07/19 19:45 [place] % (Auto) 2.8 % 10/07/19 19:45 Eos % (Auto) 0.4 % 10/07/19 19:45 Baso % (Auto) 0.3 % 10/07/19 19:45 Absolute Neuts (auto) 8.8 10^3/ul (1.5-7.7) H 10/07/19 19:45 Absolute Lymphs (auto) 0.7 10^3/ul (1.0-4.8) L 10/07/19 19:45 Absolute Monos (auto) 0.3 10^3/ul (0-0.8) 10/07/19 19:45 Absolute Eos (auto) 0.0 10^3/ul (0-0.6) 10/07/19 19:45 Absolute Basos (auto) 0.0 10^3/ul (0-0.2) 10/07/19 19:45 Absolute Nucleated RBC 0.0 10^3/ul 10/07/19 19:45 Nucleated RBC % 0.0 10/07/19 19:45 VBG pH 7.41 (7.32-7.43) 10/07/19 19:45 VBG pCO2 34 mmHg (41-51) L 10/07/19 19:45 VBG pO2 59.0 mmHg (35-45) H 10/07/19 19:45 VBG HCO3 22.9 mmol/L (24-28) L 10/07/19 19:45 VBG O2 Saturation 94.0 % (70-80) H 10/07/19 19:45 VBG Base Excess -2.4 mmol/L (0.0-4.0) L 10/07/19 19:45 Sodium 133 mmol/L (135-145) L 10/08/19 05:18 Potassium 3.8 mmol/L (3.5-5.0) 10/08/19 05:18 Chloride 101 mmol/L (101-111) 10/08/19 05:18 Carbon Dioxide 23 mmol/L (22-32) 10/08/19 05:18 Anion Gap 9 mmol/L (2-11) 10/08/19 05:18 BUN 14 mg/dL (6-24) 10/08/19 05:18 Creatinine 0.74 mg/dL (0.67-1.17) 10/08/19 05:18 Est GFR ( Amer) 143.2 (>60) 10/08/19 05:18 Est GFR (Non-Af Amer) 118.4 (>60) 10/08/19 05:18 BUN/Creatinine Ratio 18.9 (8-20) 10/08/19 05:18 Glucose 231 mg/dL (70-100) H 10/08/19 05:18 POC Glucose (mg/dL) 261 mg/dL (70-100) H 01/21/20 16:24 Glucose Meter Confirm 637 mg/dL (70-100) H* 10/07/19 19:45 Hemoglobin A1c 13.9 % (4.0-5.6) H 10/07/19 19:45 Calcium 8.3 mg/dL (8.6-10.3) L 10/08/19 05:18 Total Bilirubin 0.80 mg/dL (0.2-1.0) 10/07/19 19:45 AST 21 U/L (13-39) 10/07/19 19:45 ALT 42 U/L (7-52) 10/07/19 19:45 Alkaline Phosphatase 93 U/L (34-104) 10/07/19 19:45 Total Protein 7.7 g/dL (6.4-8.9) 10/07/19 19:45 Albumin 4.5 g/dL (3.2-5.2) 10/07/19 19:45 Globulin 3.2 g/dL (2-4) 10/07/19 19:45 Albumin/Globulin Ratio 1.4 (1-3) 10/07/19 19:45 TSH 2.63 mcIU/mL (0.34-5.60) 10/07/19 19:45 Urine Color Yellow 10/07/19 20:42 Urine Appearance Clear 10/07/19 20:42 Urine pH 5.0 (5-9) 10/07/19 20:42 Ur Specific [place] 1.032 (1.010-1.030) H 10/07/19 20:42 Urine Protein Negative (Negative) 10/07/19 20:42 Urine Ketones 1+ (Negative) A 10/07/19 20:42 Urine Blood Negative (Negative) 10/07/19 20:42 Urine Nitrate Negative (Negative) 10/07/19 20:42 Urine Bilirubin Negative (Negative) 10/07/19 20:42 Urine Urobilinogen Negative (Negative) 10/07/19 20:42 Ur Leukocyte Esterase Negative (Negative) 10/07/19 20:42 Urine Glucose 3+(>=500 mg/dl) (Negative) A 10/07/19 20:42
--- NOTE | 2019-10-08 20:13 | PN ---
Subjective Date of Service: 10/08/19 Interval History: patient c/o of being fatigued , reports he was not sleeping well at night. Denies chest pain or shortness of breath. Denies abd pain n/v/d. Denies fever or chills Family History: Unchanged from Admission Social History: Unchanged from Admission Past Medical History: Unchanged from Admission Objective Active Medications: Dextrose (D50w Syringe 50 Ml*) 12.5 gm IV PUSH .FOR FS < 60 - SS PRN PRN Reason: FS < 60 Diphenhydramine HCl (Benadryl Po*) 25 mg PO Q8HR PRN PRN Reason: Allergy Symptoms Last Admin: 10/07/19 23:58 Dose: 25 mg Famotidine (Pepcid Tab*) 20 mg PO DAILY [facility]OD[facility] Last Admin: 10/08/19 09:41 Dose: 20 mg Glipizide (Glucotrol Xl*) 5 mg PO DAILY [facility] Insulin Human Lispro (Humalog*) 0 units SUBCUT ACHS [facility]; Protocol Last Admin: 10/08/19 17:45 Dose: 6 units Metformin HCl (Glucophage*) 500 mg PO DAILY WITH MEAL [facility] Metformin HCl (Glucophage*) 250 mg PO BEDTIME [facility] Vital Signs - 8 hr 10/08/19 15:15 Temperature 98 F Pulse Rate 86 Respiratory 18 Rate Blood Pressure 150/84 (mmHg) O2 Sat by Pulse 98 Oximetry Oxygen Devices in Use Now: None Appearance: appears comfortable resting in bed no acute distress. Eyes: No Scleral Icterus Ears/Nose/Mouth/Throat: Clear Oropharnyx, Mucous Membranes Moist Neck: NL Appearance and Movements; NL JVP, Trachea Midline Respiratory: Symmetrical Chest Expansion and Respiratory Effort, Clear to Auscultation Cardiovascular: NL Sounds; No Murmurs; No JVD, No Edema Abdominal: NL Sounds; No Tenderness; No Distention Extremities: No Edema, No Clubbing, Cyanosis Skin: No Rash or Ulcers Neurological: Alert and Oriented x 3 Nutrition: Taking PO's Result Diagrams: 10/07/19 19:45 10/09/19 05:57 Assess/Plan/Problems-Billing Assessment: Mr. Bach is a 39 y.o male who presented to the ER with fatigue who was found to have hyperglycemia. Recent use of steroids. Given IVF and insulin with significant improvement. - Patient Problems (1) Hyperglycemia due to type 2 diabetes mellitus Current Visit: Yes Status: Acute Code(s): E11.65 - TYPE 2 DIABETES MELLITUS WITH HYPERGLYCEMIA SNOMED Code(s): 384094218594310 Comment: Hyperglycemia- New dx of diabetes- severe hyperglycemia could of been associated with the use of steriods, but given the elevationin the A1c this is likely a long standing issue with acute elevation related to steriod use. A1C 13.[address] Norton - pending - will continue lispro SS - will need diabetic education- for finger sticks, diet and signs and symptoms of low and high blood sugars - Consult for diabetic education - [facility] (2) DVT prophylaxis Current Visit: Yes Status: Acute Code(s): Z29.9 - ENCOUNTER FOR PROPHYLACTIC MEASURES, UNSPECIFIED SNOMED Code(s): 089425677 Comment: ambulation / scd's (3) Full code status Current Visit: Yes Status: Acute Code(s): Z78.9 - OTHER SPECIFIED HEALTH STATUS SNOMED Code(s): 797716974 Status and Disposition: discharge home when medically stable
[2019-10-08] MEDS ORDERED: metFORMIN* 500 MG TAB PO SCH (21:00)
[2019-10-09 06:47] LABS: BUN/Creatinine Ratio 21.8 (8-20); Calcium 8.5 mg/dL (8.6-10.3); EGFR African American 134.8 (>60); EGFR Non-African American 111.4 (>60); Potassium 3.5 mmol/L (3.5-5.0)
[2019-10-09] MEDS ORDERED: metFORMIN* 500 MG TAB PO SCH (08:30)
[2019-10-09] MEDS ORDERED: glipiZIDE TAB.XL* 5 MG PO SCH (09:00)
[2019-10-09] MEDS: Insulin LISPRO* 1 UNITS UNIT SUBCUT SCH ×2 (09:33→13:51)
[2019-10-09] MEDS: Famotidine TAB* 20 MG PO SCH (09:33)
[2019-10-09 11:57] VITALS: BP 141/80
--- NOTE | 2019-10-10 10:38 | DS ---
CC: Dr. Norton * DISCHARGE SUMMARY: DATE OF ADMISSION: 10/07/19 DATE OF DISCHARGE: 10/09/19 PROVIDER: Dante Vidal NP PRIMARY CARE PROVIDER: None. ATTENDING PHYSICIAN WHILE IN THE HOSPITAL: Dr. Myranda Lewis * (dictated by Dante Vidal NP). PRIMARY DIAGNOSIS: Hyperglycemia, new diagnosis of type 2 diabetes. SECONDARY DIAGNOSIS: None. STUDIES COMPLETED WHILE IN THE HOSPITAL: Labs: He had a hemoglobin A1c which was 13.9. DISCHARGE MEDICATIONS: New home medications: 1. Glipizide 5 mg p.o. daily. 2. Metformin ER 750 mg p.o. at bedtime. Continued home medications: 1. Pepcid 20 mg p.o. daily p.r.n. HISTORY OF PRESENT ILLNESS AND HOSPITAL COURSE: Mr. Bach is a 39-year-old male with no significant past medical history who complains of dry mouth and increased thirst x1 week. The patient was recently started on prednisone for urticaria as well as Pepcid due to unknown reason. The patient also reports that he has been having nausea. While in the emergency room, the patient was found to be hyperglycemic with blood sugar of 637. On arrival to the emergency room, he was given IV fluids and regular insulin. His blood sugar did trend down throughout his hospitalization. The patient does report that he drinks 6 to 8 Mountain Dews on daily basis as well as Gatorade. During the hospitalization, the patient was started on metformin and glipizide with his blood sugar trending down. On the day of discharge, his blood sugars were ranging from 200 to 214. He was seen in consultation by Dr. Norton from Endocrinology, who recommended starting metformin and glipizide for management of his blood sugars and recommended followup with Endocrinology in 2 to 3 weeks for further adjustments as needed. At this time, the patient's sugar has dramatically improved and he is stable for discharge. REVIEW OF SYSTEMS: The patient denies any chest pain or shortness of breath. Denies any vomiting or diarrhea. He does report some mild nausea after eating breakfast. He denies any chest pain or shortness of breath. He denies any fever or chills. Denies any urinary frequency, urgency, or pain with urination. Denies any increased thirst. PHYSICAL EXAMINATION: General: At this time, Mr. Bach is a 39-year-old male. He is alert and oriented, resting in his hospital bed. He is in no acute distress. Vital Signs: Blood pressure is 141/80, heart rate 74, respirations 16 , O2 saturation 100%, temperature was 97.0. HEENT: Head is atraumatic, normocephalic. Eyes: EOMs are intact. Sclerae anicteric and not pale. Oral mucosa is moist. Neck is supple. Lungs are clear to auscultation bilaterally. No wheezes, rales, or rhonchi. Cardiac: S1, S2. Regular rate and rhythm. No murmurs, rubs, or gallops. Abdomen is soft and nontender. Bowel sounds are present x4. Extremities: He is able to move all 4 extremities. There is no clubbing or cyanosis. He has no open wounds or ulcers. Skin is intact. Neurologic: He is awake, alert, and oriented x3. Speech is clear. Thought process is intact. There are no gross focal deficits. At this time, Mr. Bach is stable for discharge home. DISCHARGE PLAN: Mr. Bach will be discharged home. Activity as tolerated. New onset type 2 diabetes. The patient will be placed on glipizide XL 5 mg p.o. daily in the morning and metformin ER 750 mg at bedtime. He should check his blood sugars twice daily prior to meals and take his log to his followup appointment. He should follow up with Endocrinology, Dr. Norton, in 2 to 3 weeks. He will follow up with [facility] on 10/22/19 at 8:20 in the morning. The patient was instructed to stop drinking soda and Gatorade and that he could drink diet soda and Gatorade with no sugar. It appears that his hyperglycemia was exacerbated due to the initiation of prednisone with underlying undiagnosed diabetes. At this time, Mr. Bach is stable for discharge home. I have discussed this plan with my attending, Dr. Myranda Lewis. She is in agreement with my plan. CONDITION ON DISCHARGE: Stable. DISPOSITION ON DISCHARGE: Home. TIME SPENT: Time spent on this discharge was 45 minutes, greater than half the time was spent at the bedside reviewing discharge instructions and plans. DANTE VIDAL NP [id number]/[facility] #: [id number] [place]
== END 2019-10-09 14:15 | disposition home or self-care (01) ==
LOC: ED 19:09 → MED 22:18
PROVIDERS: ADMIT Internal Medicine; ATTEND Internal Medicine
DX: E11.65 Type 2 diabetes mellitus with hyperglycemia (principal); R35.8 Other polyuria; Z79.899 Other long term (current) drug therapy; R53.83 Other fatigue; I10 Essential (primary) hypertension
CPT/HCPCS: 36415; 80048; 80053; 81003; 82803; 82947; 83036; 84443; 85025; 96360; 96361; 99284; A9270-GY; G0378